=== PATIENT | male | born 1995 | race African-American/Black ===

== ENCOUNTER 2019-05-30 23:48 | Emergency (ER) | payer BC, OTHER ==
[~2019-05-30] VITALS: Ht 198.1 cm; Wt 127.0 kg
[~2019-05-30 23:48] MED LIST: ACETAMINOPHEN-1 EAC1 PO; CONCERTA18 M1 PO; IBUPROFEN 800800 M1 PO; IBUPROFEN 800800 MG PO; OTHER MISCELL
[2019-05-31] MEDS ORDERED: SEROQUEL200 MG PO (00:04)
[2019-05-31] MEDS ORDERED: OMEPRAZOLE 20 M20 M1 PO (00:05)
[2019-05-31] MEDS ORDERED: WELLBUTRIN XL150 MG PO (00:05)
[2019-05-31 00:18] LABS: URINE BILIRUBIN NEGATIVE (Negative); URINE BLOOD NEGATIVE (Negative); URINE CLARITY CLEAR; URINE COLOR YELLOW; URINE GLUCOSE-RANDOM NEGATIVE (Negative); URINE KETONES NEGATIVE (Negative); URINE LEUKOCYTES NEGATIVE (Negative); URINE NITRITE NEGATIVE (Negative); URINE PROTEIN NEGATIVE (Negative); URINE UROBILINOGEN 0.2 E.U./dl (0.2-1.0)
[2019-05-31 00:24] LABS: AMP/METHAMP Negative (Negative); BARBITURATES Negative (Negative); BENZODIAZEPINES POSITIVE (Negative); COCAINE Negative (Negative); METHADONE Negative (Negative); OPIATES Negative (Negative); PCP Negative (Negative); THC POSITIVE (Negative)
[2019-05-31 00:24] LABS: ABSOLUTE BASOPHILS 0.1 thou/uL (0.0-0.2); ABSOLUTE EOSINOPHILS 0.1 thou/uL (0.0-0.7); ABSOLUTE MONOCYTES 0.6 thou/uL (0.0-1.2); ABSOLUTE NEUTROPHILS 5.7 thou/uL (1.6-8.1); BASOPHILS 0.8 %; EOSINOPHILS 0.8 %; HEMOGLOBIN 14.7 gm/dL (14.0-18.0); LYMPHOCYTES 23.8 %; MCH 27.8 pg (26.0-34.0); MCHC 33.4 g/dL (28.0-37.0); MCV 83.3 fL (80.0-100.0); MONOCYTES 6.7 %; NUCLEATED RBCS 0 /100WBC; PLATELET COUNT* 320 thou/uL (150-400); POLYS 67.9 %; RBC 5.28 mil/uL (4.50-6.00); RDW-CV 13.6 % (10.5-14.5); WBC 8.4 thou/uL (4.0-11.0)
[2019-05-31 00:32] LABS: CALCIUM 9.2 mg/dL (8.5-10.1); CREATININE 0.8 mg/dL (0.6-1.3)
[2019-05-31 00:37] LABS: ALBUMIN 4.1 g/dL (3.4-5.0); TOTAL BILIRUBIN 0.3 mg/dL (<0.1-1.0); TOTAL PROTEIN 8.1 g/dL (6.4-8.2)
[2019-05-31 00:39] LABS: ACETAMINOPHEN < 2 ug/mL (10-30); ALCOHOL < 10 mg/dL (<10); SALICYLATE < 2.8 mg/dL (2.8-20.0)
[2019-05-31 16:48] VITALS: BP 139/65
== END 2019-05-31 16:48 ==
LOC: M.ERS 23:48
PROVIDERS: Emergency Medicine
DX: R45.851 Suicidal ideations (principal); F41.9 Anxiety disorder, unspecified; Z79.899 Other long term (current) drug therapy

== ENCOUNTER 2021-05-16 16:08 | Emergency (ER) | payer OTHER ==
[~2021-05-16] VITALS: Ht 195.6 cm; Wt 120.2 kg
[~2021-05-16 16:08] MED LIST changes: +OMEPRAZOLE 20 M20 M1 PO; +SEROQUEL200 MG PO; +WELLBUTRIN XL150 MG PO
[2021-05-16] MEDS ORDERED: DEPAKOTE500 MG PO (17:28)
[2021-05-16 19:01] VITALS: BP 129/69
== END 2021-05-16 19:02 | disposition home or self-care (01) ==
LOC: M.ERS 16:08
DX: S82.144A Nondisplaced bicondylar fracture of right tibia, initial encounter for closed fracture (principal); F32.9 Major depressive disorder, single episode, unspecified; F41.9 Anxiety disorder, unspecified; Z79.899 Other long term (current) drug therapy; W51.XXXA Accidental striking against or bumped into by another person, initial encounter; Y93.89 Activity, other specified; Y92.89 Other specified places as the place of occurrence of the external cause; Y99.8 Other external cause status